=== PATIENT | female | born 1960 | race Caucasian/White ===

== ENCOUNTER 2018-12-25 07:00 | Day surgery (SDC) | payer OTHER ==
[~2018-12-25] VITALS: Ht 152.4 cm; Wt 60.3 kg
[~2018-12-25 07:00] MED LIST: ALDACTAZIDE 501 EACH PO; CALCIUM500 M1 PO; CIDAFLEX TABLE1 EACH PO; CRESTOR5 MG PO; OMEPRAZOLE20 M1 PO; PROGESTERONE200 MG PO; VITAMIN D1000 UNIT PO; VITAMIN E400 UNI6 PO
[2018-12-26] MEDS ORDERED: ULTRAM50 MG PO (08:29)
[2018-12-26] MEDS ORDERED: NEURONTIN300 MG PO (08:30)
[2018-12-26] MEDS ORDERED: INTESTINEX680 M1 PO (08:30)
== END 2018-12-26 08:00 | disposition home or self-care (01) ==
LOC: O/R 07:00 → CIR.AMB 07:00 → O/R 07:13 → SURH 07:13 → O/R 14:15 → EDSTATUS 14:15 → O/R 15:34 → SURH 15:34 → CIR.AMB 12-26 08:00 → O/R 12-26 11:03 → SURH 12-26 11:03
DX: N81.6 Rectocele (principal); K64.1 Second degree hemorrhoids